=== PATIENT | male | born 1960 | race Caucasian/White ===

== ENCOUNTER 2018-04-03 09:10 | Emergency (ER) | payer SELFPAY ==
[~2018-04-03 09:10] MED LIST: AMIODARONE 150 MG INJ; ATROPINE 1 MG/10 ML SYRINGE; BIVALIRUDIN 250 MG/50 ML NS BAG IVPB; CANGRELOR 50MG / NS 250 BAG; DOPamine-D5W 1.6 MG/ML 250 ML; EPINEPHrine 0.1 MG/ML SYG; NA BICARBONATE 8.4% 50 ML SYG
[2018-04-03] MEDS ORDERED: HEPARIN 1000 UNITS/ML 10 ML INJ IV (09:22)
[2018-04-03] MEDS ORDERED: ASPIRIN 300 MG SUPP PR (09:30)
[2018-04-03 09:35] LABS: ABNORMAL IP MESSAGE 1; HEMATOCRIT 43.9 % (42.0-52.0); HEMOGLOBIN 13.7 g/dl (14.0-18.0); MEAN CORPUSCULAR HGB CONC 31.2 g/dl (32.0-37.0); MEAN CORPUSCULAR VOLUME 96.1 fl (82.0-101.0); MEAN PLATELET VOLUME 9.8 fl (7.4-10.4); PLATELET COUNT 129 10^3/UL (140-415); POSITIVE DIFF @See below; RED BLOOD COUNT 4.57 10^6/ul (4.70-6.10)
[2018-04-03 09:35] LABS: WHITE BLOOD COUNT 6.7 10^3/ul (4.8-10.8)
[2018-04-03 09:45] LABS: ADD UMIC YES; UR ASCORBIC ACID NEGATIVE (NEGATIVE); UR BILIRUBIN (Dip) NEGATIVE (NEGATIVE); UR BLOOD (Dip) 1+ mg/dL (NEGATIVE); UR CLARITY SLIGHTLY CLOUDY (CLEAR); UR COLOR YELLOW (YELLOW); UR GLUCOSE (Dip) NEGATIVE (NEGATIVE); UR KETONES (Dip) NEGATIVE (NEGATIVE); UR LEUKOCYTE ESTERASE (Dip) NEGATIVE Leu/ul (NEGATIVE); UR MUCUS FEW /HPF (NONE SEEN); UR NITRITE (Dip) NEGATIVE (NEGATIVE); UR RBC 21 /HPF (0-5); UR TOTAL PROTEIN (Dip) 1+ mg/dl (NEGATIVE); UR UROBILINOGEN (Dip) NEGATIVE (NEGATIVE); UR WBC 4 /HPF (0-5)
[2018-04-03 09:50] LABS: ALANINE AMINOTRANSFERASE 233 IU/L (13-69); ALBUMIN 3.6 g/dl (3.3-4.9); ALBUMIN/GLOBULIN RATIO 1.44; ALKALINE PHOSPHATASE 74 IU/L (42-121); ANION GAP 20 (5-13); ASPARTATE AMINO TRANSFERASE 209 IU/L (15-46); BILIRUBIN,INDIRECT 0.1 mg/dl (0-1.1); BILIRUBIN,TOTAL 0.1 mg/dl (0.2-1.3); BLOOD UREA NITROGEN 12 mg/dl (7-20); CARBON DIOXIDE 20 mmol/L (21-31); CHLORIDE 99 mmol/L (97-110); CREATININE 1.16 mg/dl (0.61-1.24); Estimated GFR > 60 mL/min (>60); GLUCOSE 332 mg/dl (70-220); POTASSIUM 3.1 mmol/L (3.5-5.1); SODIUM 139 mmol/L (135-144); TOTAL PROTEIN 6.1 g/dl (6.1-8.1)
[2018-04-03 09:52] LABS: ADD MAN DIFF? YES; INR 1.11; PROTIME 14.4 Sec (11.9-14.9); PT RATIO 1.1
[2018-04-03 09:53] LABS: PARTIAL THROMBOPLASTIN TIME 45.6 Sec (23.0-35.0)
[2018-04-03] MEDS ORDERED: AMIODARONE 900 MG in DEXTROSE 5% 482 ML IV (10:00)
[2018-04-03 10:09] LABS: TROPONIN-I 0.202 ng/ml (0.000-0.120)
[2018-04-03] MEDS ORDERED: EPINEPHRINE 4 MG in D5W 250 ML IV (10:30)
[2018-04-03 10:39] LABS: BAND NEUTROPHILS % (M) 1 % (0-4); BURR CELLS 1+ (0-0); EOSINOPHILS % (M) 1 % (0-7); GIANT THROMBO% (M) 2 % (0-0); LYMPHOCYTES #M 5.2 10^3/ul (0.8-2.9); LYMPHOCYTES % (M) 79 % (15-51); METAMYELOCYTES #M 0.4 10^3/ul (0.0-0.0); METAMYELOCYTES %M 6 % (0-0); MONOCYTE #M 0.2 10^3/ul (0.3-0.9); MONOCYTES % (M) 3 % (0-11); MYELOCYTES #M 0.1 10^3/ul (0.0-0.0); MYELOCYTES % (M) 2 % (0-0); PLATELET ESTIMATE DECREASED; POIKILOCYTOSIS 1+ (0-0); REACTIVE LYMPHOCYTES% (M) 1 % (0-0); SEG NEUT #M 0.5 10^3/ul (1.6-7.5); SEGMENTED NEUTROPHILS (M) % 7 % (39-77); SMUDGE%M 5 % (0-0)
[2018-04-03] MEDS ORDERED: TICAGRELOR 90 MG TABLET (11:23)
[2018-04-03] MEDS ORDERED: VASOPRESSIN 60 UNIT in DEXTROSE 5% 60 ML IV (11:30)
== END 2018-04-03 14:44 | disposition expired ==
LOC: E/R 09:10
DX: I21.3 ST elevation (STEMI) myocardial infarction of unspecified site (principal); R40.2432 Glasgow coma scale score 3-8, at arrival to emergency department; R07.9 Chest pain, unspecified
CPT/HCPCS: 31500; 36415; 71045; 80053; 81001; 84484; 85025; 85610; 85730; 87086; 92928; 92950; 92953; 93005; 93454; 94002; 99291-25